=== PATIENT | female | born 1990 | race Caucasian/White ===

== ENCOUNTER 2025-04-15 09:29 | Observation (INO) | payer BC ==
[2025-04-15] VITALS (7 sets, daily range): BP systolic 105–140; BP diastolic 63–88; TEMP 97.3–98.6; O2SAT 94–100
[~2025-04-15] VITALS: Ht 157.5 cm; Wt 76.0 kg
[~2025-04-15 09:29] MED LIST: BUPR-766 PO; SYNT50TA PO; TIRZ10PE3 SQ
[2025-04-15] MEDS ORDERED: LIDOCAINE 2% 100 MG/5 ML SDV (FOR ANES.) As Ordered ONE (10:44)
[2025-04-15] MEDS ORDERED: SUGAMMADEX SODIUM 500 MG/5 ML VIAL As Ordered ONE (10:44)
[2025-04-15] MEDS ORDERED: dexAMETHasone 4 MG/ML 1 ML VIAL As Ordered ONE (10:44)
[2025-04-15] MEDS ORDERED: dexmedeTOMIDine (4 MCG/ML) 200 MCG/50 ML BTL As Ordered ONE (10:44)
[2025-04-15] MEDS ORDERED: ONDANSETRON 4MG 2ML VIAL As Ordered ONE (10:44)
[2025-04-15] MEDS ORDERED: ROCURONIUM BROMIDE 50MG/5ML VIAL As Ordered ONE (10:44)
[2025-04-15] MEDS ORDERED: MIDAZOLAM INJ 2 MG/2 ML VIAL As Ordered ONE (10:52)
[2025-04-15] MEDS: HEPARIN SOD 5000 UNITS/ML 1 ML VIAL/SYRINGE SQ ONE (12:37)
[2025-04-15] MEDS: ceFAZolin SOD 2 GM IV ONCE IV ONE (12:39)
[2025-04-15] MEDS ORDERED: ACETAMINOPHEN 1000MG/100ML IV BAG As Ordered ONE (12:55)
[2025-04-15] MEDS: GENTAMICIN SULF 80 MG/2 ML VIAL As Ordered ONE (13:00)
[2025-04-15] MEDS ORDERED: HYDROmorphone HCL 2 MG/ML 1 ML VIAL As Ordered ONE (13:12)
[2025-04-15] MEDS ORDERED: HYDROMORPHONE HCL 0.5 MG/0.5 ML SYRINGE IV PRN (16:05)
[2025-04-15] MEDS: LR 1,000 ML IV SCH ×2 (16:05→18:56)
[2025-04-15] MEDS ORDERED: ACETAMINOPHEN 325 MG TAB PO PRN (16:15)
[2025-04-15] MEDS: ONDANSETRON 4MG 2ML VIAL IV PRN ×2 (16:18→21:48)
[2025-04-15] MEDS: ceFAZolin SODIUM 2 GM in DEXTROSE 5% (D5W) ADV/MINI-BAG 50 ML IV SCH (20:16)
[2025-04-15] MEDS: traMADol 50 MG TAB PO PRN (20:17)
[2025-04-15] MEDS: PERCOCET 5MG/325MG TAB PO PRN (21:49)
[2025-04-16 02:44] VITALS: BP 100/55; TEMP 98.2; O2SAT 99
[2025-04-16] MEDS: LEVOTHYROXINE 50 MCG TABLET (0.05 MG) PO SCH (06:22)
[2025-04-16 06:51] VITALS: BP 117/70; TEMP 98.4; O2SAT 100
[2025-04-16] MEDS ORDERED: PERCOCET PO (10:44)
[2025-04-16 10:46] VITALS: BP 137/87; TEMP 97.5; O2SAT 99
== END 2025-04-16 12:39 | disposition home or self-care (01) ==
LOC: M SDC 09:29 → M MS4PR 09:30
PROVIDERS: ADMIT Plastic Surgery Surgery of the Hand; ATTEND Plastic Surgery Surgery of the Hand
DX: N62 Hypertrophy of breast (principal)
CPT/HCPCS: 19318; 81025; 88305; 96365; 96366; 96375; J0131; J0665; J0666; J0690; J1100; J1171; J1580; J2250; J2405; J2550; J2765; J3010